=== PATIENT | female | born 1945 | race Caucasian/White ===

== ENCOUNTER 2019-09-06 11:46 | Inpatient (IN) | payer OTHER ==
[~2019-09-06] VITALS: Ht 160 cm; Wt 59.0 kg
[2019-09-21] MEDS ORDERED: [UNRECOGNIZED DRUG - OTHER] PO (10:04)
[2019-09-21] MEDS ORDERED: SYNTROID PO (10:04)
[2019-09-21] MEDS ORDERED: ATORVAST PO (10:05)
[2019-09-21] MEDS ORDERED: [UNRECOGNIZED DRUG - CODE] PO (10:05)
[2019-09-21] MEDS ORDERED: CLONAZE PO (10:05)
[2019-09-28] MEDS ORDERED: LEVOTHYROXINE25 MCG (07:55)
[2019-09-28] MEDS ORDERED: ATORVASTATIN CA10 MG (07:55)
[2019-09-28] MEDS ORDERED: CLONAZEPAM0.125 MG (07:55)
[2019-09-28] MEDS ORDERED: ARICEPT5 MG (07:56)
[2019-09-28] MEDS ORDERED: PRISTIQ ER50 MG (07:57)
== END 2019-10-01 18:19 | disposition home or self-care (01) | DRG 331 ==
LOC: SURG 09-28 05:22 → O/R 09-28 05:22 → SURG 09-28 07:00
PROVIDERS: ADMIT Colon & Rectal Surgery
PROC: 0DJD8ZZ Inspection of Lower Intestinal Tract, Via Natural or Artificial Opening Endoscopic (ICD-10-PCS; 2019-09-28)
PROC: 0DTN4ZZ Resection of Sigmoid Colon, Percutaneous Endoscopic Approach (ICD-10-PCS; principal; 2019-09-28 07:00)
DX: K57.32 Diverticulitis of large intestine without perforation or abscess without bleeding (principal)

== ENCOUNTER 2021-03-30 05:58 | Day surgery (SDC) | payer OTHER ==
[~2021-03-30 05:58] MED LIST: ARICEPT5 MG; ATORVAST PO; ATORVASTATIN CA10 MG; CLONAZE PO; CLONAZEPAM0.125 MG; LEVOTHYROXINE25 MCG; PRISTIQ ER50 MG; SYNTROID PO; [UNRECOGNIZED DRUG - CODE] PO; [UNRECOGNIZED DRUG - OTHER] PO
== END 2021-03-30 09:35 | disposition home or self-care (01) ==
LOC: ADM 05:58 → AMB-ENDOS 05:58
PROVIDERS: ATTEND Colon & Rectal Surgery
DX: K62.89 Other specified diseases of anus and rectum (principal); K64.2 Third degree hemorrhoids; Z20.822 Contact with and (suspected) exposure to COVID-19